=== PATIENT | male | born 1945 | race Caucasian/White ===

== ENCOUNTER 2016-09-07 08:15 | Inpatient (IN) | payer OTHER, BC ==
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
[2016-10-05] MEDS ORDERED: ceFAZolin 2 GM/DEXTROSE 100 ML IV ONE (06:07)
--- NOTE | 2016-10-05 06:13 | PDANEPAE ---
ANE History of Present Illness 71 year old male with severe low back and leg pain for L5/S1 TLIF. 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 Blind in L eye. Hypercholesterolemia. Chronic pain on morphine. Recent bronchitis 4 weeks ago, cleared 3 weeks ago with CXR and Abx. Remote PNA with lungs "weak" / scarring, empyema in past on L MAXIMINO, does not tolerate CPAP very well due to sinus issues. - Cardiovascular History Hx Hypertension: No Hx Arrhythmias: No Hx Chest Pain: No Hx Coronary Artery / Peripheral Vascular Disease: No Hx CHF / Valvular Disease: No Hx Palpitations: No - Pulmonary History Hx COPD: No Hx Asthma/Reactive Airway Disease: Yes Hx Recent Upper Respiratory Infection: Yes Hx Oxygen in Use at Home: No - Neurologic History Hx Cerebrovascular Accident: No Hx Seizures: No Hx Dementia: No - Endocrine History Hx Diabetes: No - Renal History Hx Renal Disorders: Yes - Liver History Hx Hepatic Disorders: No - Neurological & Psychiatric Hx Hx Neurological and Psychiatric Disorders: Yes - Cancer History Hx Cancer: No - Congenital Disorder History Hx Congenital Disorders: No - GI History Hx Gastrointestinal Disorders: No - Chronic Pain History Chronic Pain: Yes (low back/R leg) ANE Review of Systems - Exercise capacity METS (RN): 4 METS - Systems Constitutional: Reports: no symptoms EENMT: Reports: other (chronic sinus issues with drainage/congestion) Cardiac: Reports: no symptoms, other (no CAD per pt on recent angiography (for CP presentation, determine to be secondary to anxiety)) Respiratory: Reports: no symptoms, other ANE Patient History - Allergies Allergies/Adverse Reactions: levofloxacin Allergy (Verified 10/04/16 17:02) Other-Enter Comments metronidazole [From Flagyl] Allergy (Verified 10/04/16 17:02) Other-Enter Comments moxifloxacin Allergy (Verified 10/04/16 17:02) Other-Enter Comments nitroglycerin Allergy (Verified 10/04/16 17:02) Hypotension rofecoxib [From Vioxx] Allergy (Verified 10/04/16 17:02) Diarrhea - Home Medications Home Medications: RX: Albuterol [Proventil Inhaler HFA (*)] 2 puffs IH PRN PRN 07/04/14 [Last Taken 07/05/14] RX: Citalopram Hydrobromide [Citalopram HBr] 20 mg PO DAILY 07/04/14 [Last Taken 07/07/14 07:00] RX: Diazepam [Valium 5 MG (*)] 5 mg PO HS PRN 07/04/14 [Last Taken 07/05/14] RX: Rosuvastatin Calcium [Crestor] 10 mg PO HS 07/04/14 [Last Taken 07/06/14 21: 00] RX: morphINE IR [morphINE IR 15 mg (*)] 15 mg PO TID PRN 07/04/14 [Last Taken 05:00 15MG] RX: morphINE IR [morphINE IR 30 mg (*)] 30 mg PO TID PRN 07/04/14 [Last Taken 03:00] - NPO status NPO Since - Liquids (Date): 10/05/16 NPO Since - Liquids (Time): 06:30 (water with meds here) NPO Since - Solids (Date): 10/05/16 NPO Since - Solids (Time): 00:00 - Anes Hx Anes Hx: no prior problems - Smoking Hx Smoking Status: Never smoked Marijuana use: No - Alcohol Use Alcohol Use: Occasionally (1 beer/ day) - Family Anes Hx Family Anes Hx: neg - N/A ANE Labs/Vital Signs - Labs Result Diagrams: 10/05/16 06:35 - Vital Signs Height: 172.72 cm Weight: 72.575 kg ANE Physical Exam - Airway Neck exam: decreased ROM, spinal fusion Mallampati Score: Class 3 - Pulmonary Pulmonary: reduced air movement, other (decreased BS on L base) - Cardiovascular Cardiovascular: regular rate and rhythym, other (very distant) - ASA Status ASA Status: III ANE Anesthesia Plan Anesthesia Plan: general endotracheal anesthesia
[2016-10-05] MEDS ORDERED: LR 1,000 ML IV ONE (06:16)
[2016-10-05] MEDS ORDERED: LIDOCAINE 1% 2 ML INJ ID PRN (06:16)
[2016-10-05] MEDS ORDERED: LIDOCAINE 1% 2 ML INJ ONE (06:25)
--- NOTE | 2016-10-05 06:33 | PDHPUP ---
History & Physical Update H&P update statement: This history and physical update is based on an assessment of the patient which was completed after admission or registration (within 24 hours), but prior to the surgery/procedure. H&P update: H&P reviewed & patient examined, no change in patient's condition since H&P completed
[2016-10-05] MEDS ORDERED: BACITRACIN 50,000 UNITS/10 ML SYR IRR ONE (06:47)
[2016-10-05] MEDS ORDERED: BUPIVACAINE/EPI 0.25% 30 ML SDV ONE (06:47)
[2016-10-05] MEDS ORDERED: THROMBIN (BOVINE) 5,000 UNIT VIAL TP ONE (06:47)
[2016-10-05 06:52] LABS: % IMMATURE GRANULYOCYTES 0.2 % (0.0-1.1); ABSOLUTE IMMATURE GRANULOCYTES 0.01 10^3/uL (0.00-0.10); ADD DIFF? NO; ADD MORPH? NO; ADD SCAN? NO; ATYPICAL LYMPHOCYTE FLAG 10 (0-99); FRAGMENT RBC FLAG 0 (0-99); HEMATOCRIT 36.9 % (40.0-51.0); HEMOGLOBIN 12.9 g/dL (13.7-17.5); LEFT SHIFT FLG 0 (0-99); LIPEMIA HEMOLYSIS FLAG 90 (0-99); MEAN CELL HEMOGLOBIN 30.2 pg (27.9-34.1); MEAN CELL VOLUME 86.4 fL (81.5-99.8); MEAN PLATELET VOLUME 10.5 fL (8.7-11.7); PLATELET CLUMPS FLAG 20 (0-99); PLATELET COUNT 195 10^3/uL (150-400); RED BLOOD CELL COUNT 4.27 10^6/uL (4.40-6.38); RED CELL DISTRIBUTION WIDTH 13.5 % (11.5-15.2)
[2016-10-05] MEDS ORDERED: ALBUTEROL 3 ML DEYVIAL IH ONE (07:09)
[2016-10-05] MEDS ORDERED: MIDAZOLAM 2 MG/2 ML VIAL IVP ONE (07:10)
[2016-10-05] MEDS ORDERED: ALBUTEROL 3 ML DEYVIAL ONE (07:15)
[2016-10-05] MEDS ORDERED: DEXMEDETOMIDINE HCL 400 MCG in NS 100 ML IV SCH (07:30)
[2016-10-05] MEDS ORDERED: REMIFENTANIL HCL 1 MG VIAL ONE (07:30)
[2016-10-05] MEDS ORDERED: PROPOFOL/EMULSION 500 MG/50 ML BOTTLE IV ONE (07:30)
[2016-10-05] MEDS ORDERED: HYDROmorphONE/DILAUDID 2 MG/ML INJ ONE (07:30)
[2016-10-05] MEDS ORDERED: PROPOFOL 200 MG/20 ML VIAL ONE (07:35)
[2016-10-05] MEDS ORDERED: LIDOCAINE 2% 5 ML SDV ONE (07:36)
[2016-10-05] MEDS ORDERED: DEXAMETHASONE 4 MG/ML VIAL ONE (07:36)
[2016-10-05] MEDS ORDERED: ROCURONIUM 50 MG/5 ML VIAL ONE (07:36)
[2016-10-05] MEDS ORDERED: HYDROmorphONE/DILAUDID 6 MG/30 ML PCA IV PRN (08:06)
[2016-10-05] MEDS ORDERED: HYDROCODONE/APAP 5/325 TAB PO PRN (08:06)
[2016-10-05] MEDS ORDERED: LACTULOSE 20 GM/30 ML UDCUP PO PRN (08:06)
[2016-10-05] MEDS ORDERED: ONDANSETRON 4 MG/2 ML VIAL IVP PRN (08:06)
[2016-10-05] MEDS ORDERED: POLYETHYLENE GLYCOL 3350 17 GM PKT PO PRN (08:06)
[2016-10-05] MEDS ORDERED: ONDANSETRON DISINTEGRATING 4 MG TAB PO PRN (08:06)
[2016-10-05] MEDS ORDERED: NALOXONE HCL 0.4 MG/ML INJ IVP PRN ×2 (08:06→11:37)
[2016-10-05] MEDS ORDERED: BISACODYL 10 MG SUPP PR PRN (08:06)
[2016-10-05] MEDS ORDERED: MAGNESIUM HYDROXIDE 30 ML UDCUP PO PRN (08:06)
[2016-10-05] MEDS ORDERED: diphenhydrAMINE 25 MG CAP PO PRN (08:06)
[2016-10-05] MEDS ORDERED: NS 1,000 ML IV SCH (08:15)
[2016-10-05] MEDS ORDERED: DIAZEPAM 10 MG/2 ML SYR ONE (09:19)
[2016-10-05] MEDS ORDERED: ENALAPRILAT DIHYDRATE 1.25 MG/ML VIAL ONE (10:24)
[2016-10-05] MEDS ORDERED: ONDANSETRON 4 MG/2 ML VIAL ONE (10:28)
[2016-10-05] MEDS: LR 1,000 ML IV SCH ×2 (11:30→13:48)
[2016-10-05] MEDS ORDERED: fentaNYL 100 MCG/2 ML INJ IVP PRN (11:37)
[2016-10-05] MEDS ORDERED: LR 500 ML IV PRN (11:37)
[2016-10-05] MEDS ORDERED: PROMETHAZINE HCL 25 MG/ML INJ IVP PRN (11:37)
[2016-10-05] MEDS ORDERED: ALBUTEROL 3 ML DEYVIAL IH PRN (11:37)
[2016-10-05] MEDS ORDERED: HYDROmorphONE/DILAUDID 1 MG/ML SYR IVP PRN (11:37)
[2016-10-05] MEDS: FAMOTIDINE 20 MG TAB PO SCH ×2 (12:51→20:14)
[2016-10-05] MEDS: morphINE SR 15 MG TAB PO SCH ×2 (12:52→20:14)
[2016-10-05] MEDS: SENNOSIDES/DOCUSATE SODIUM TAB PO SCH ×2 (12:53→20:13)
--- NOTE | 2016-10-05 13:01 | SOAPPROG ---
SOAP Progress Note Assessment/Plan: Post Op Note: S: Awake and alert. NAD. Pt with expected lower back pain O: AFVSS/PERRLA/EOMI no droop CN 2-12 grossly intact +lt touch 5/5 BUE/BLE = KEITH in place CDI A/P: 71 yo male that is s/p TLIF L5/S1 -orders in place -call with any questions or concerns -pt seen by Dr Metz as well -brace when out of bed 10/05/16 12:59 Objective: Vital Signs Temp Pulse Resp BP Pulse Ox 36.1 C 64 12 112/60 94 10/05/16 12:35 10/05/16 12:35 10/05/16 12:40 10/05/16 12:40 10/05/16 12:40 Laboratory Results 10/05/16 06:35 10/04/16 10/05/16 10/06/16 05:59 05:59 05:59 Intake Total 1650 Output Total 350 Balance 1300 ICD10 Worksheet Patient Problems: Problems Problem Status Onset Lumbar radicular pain Acute Lumbar stenosis Acute Arthrodesis status Acute Cervical spinal stenosis Acute Neck pain Acute - ICD10 Problem Qualifiers (1) Lumbar stenosis (2) Lumbar radicular pain
[2016-10-05] MEDS: oxyCODONE IR 5 MG TAB PO PRN ×2 (13:46→18:45)
[2016-10-05] MEDS: METHOCARBAMOL 750 MG TAB PO PRN (13:49)
[2016-10-05] MEDS: ACETAMINOPHEN 500 MG TAB PO SCH ×2 (13:49→20:14)
[2016-10-05] MEDS: ceFAZolin 2 GM/DEXTROSE 100 ML IV SCH ×2 (13:55→20:13)
[2016-10-05] MEDS ORDERED: MORPHINE 30 MG PO PRN (15:22)
[2016-10-05] MEDS ORDERED: DIAZEPAM 5 MG TAB PO PRN (15:22)
[2016-10-05] MEDS ORDERED: ALBUTEROL 200 PUFFS/18 GM MDI IH PRN (15:30)
[2016-10-05] MEDS ORDERED: SODIUM CHLORIDE 5% 3.5 GM OPHT.OINT LEFTEYE SCH (16:00)
[2016-10-05] MEDS: ROSUVASTATIN CALCIUM 10 MG TAB PO SCH (20:14)
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
[2016-10-06] MEDS: SODIUM CHLORIDE 5% 30 ML OPHT.BTL LEFTEYE SCH ×4 (01:31→20:21)
[2016-10-06] MEDS: oxyCODONE IR 5 MG TAB PO PRN ×4 (03:49→20:18)
[2016-10-06] MEDS: ACETAMINOPHEN 500 MG TAB PO SCH ×3 (05:54→20:17)
[2016-10-06] MEDS: morphINE SR 15 MG TAB PO SCH ×2 (08:10→20:18)
[2016-10-06] MEDS: SENNOSIDES/DOCUSATE SODIUM TAB PO SCH ×2 (08:10→20:17)
[2016-10-06] MEDS: CITALOPRAM 20 MG TAB PO SCH (08:10)
[2016-10-06] MEDS: FAMOTIDINE 20 MG TAB PO SCH ×2 (08:10→20:17)
--- NOTE | 2016-10-06 08:59 | NEUSURGPN ---
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 No new events overnight. No de leon/neck/chest/abd or gu complaints. No f/c/n/v/d Objective: AFVSS/PERRLA/EOMI no droop CN 2-12 grossly intact +lt touch 5/5 BUE/BLE = KEITH in place CDI Neuro Check Frequency: per routine Urinary Catheter in Place: No - Physician Discussed Patient with DrBob: Isaías Patient Seen by : Isaías Neurosurgery Physical Exam - Vitals, I&O, Labs I and O 10/05/16 10/06/16 10/07/16 05:59 05:59 05:59 Intake Total 2400 Output Total 2014 Balance 385 -475 Weight 72.575 kg 72.575 kg Intake: Oral (ml) 400 IV Intake (ml) 1550 IV Infused (ml) 450 Ns 1,000 ml @ 75 mls/hr 150 IV CONT HANS Rx#: [id number] ceFAZolin 2 GM/DEXTROSE 200 100 ml @ 200 mls/hr IV ONCALL ONE Rx#:[id number] ceFAZolin 2 GM/DEXTROSE 100 100 ml @ 200 mls/hr IV Q8HRS [facility] Rx#:[id number] Output: Urine (ml) 1400 475 Toilet 1400 475 Estimated Blood Loss (ml) 300 KEITH Drain Output (ml) 315 Posterior Back Shay 315 [place] Other: Intake Quantity Yes Sufficient Number of Voids Toilet 1 Number of Stools Toilet 1 Bladder Scan Volume (ml) 670 Post Void Residual Scan Volume (ml) Toilet 200 Vital Signs Temp Pulse Resp BP Pulse Ox 36.6 C 48 L 14 102/50 L 100 10/06/16 07:56 10/06/16 07:56 10/06/16 07:56 10/06/16 07:56 10/06/16 07:56 Laboratory Results 10/05/16 06:35 ICD10 Worksheet Patient Problems: Problems Problem Status Onset Lumbar radicular pain Acute Lumbar stenosis Acute Arthrodesis status Acute Cervical spinal stenosis Acute Neck pain Acute - ICD10 Problem Qualifiers (1) Lumbar stenosis (2) Lumbar radicular pain
[2016-10-06] MEDS ORDERED: Herbals/Supplements -Info Only PO SCH (09:00)
[2016-10-06] MEDS: ROSUVASTATIN CALCIUM 10 MG TAB PO SCH (20:17)
[2016-10-06] MEDS: METHOCARBAMOL 750 MG TAB PO PRN (20:18)
[2016-10-06] MEDS ORDERED: TAMSULOSIN HCL 0.4 MG CAP PO ONE (23:56)
[2016-10-07] MEDS: ACETAMINOPHEN 500 MG TAB PO SCH ×3 (05:24→20:22)
[2016-10-07] MEDS: oxyCODONE IR 5 MG TAB PO PRN ×2 (05:24→11:43)
[2016-10-07] MEDS: METHOCARBAMOL 750 MG TAB PO PRN ×4 (05:24→20:23)
[2016-10-07] MEDS: FAMOTIDINE 20 MG TAB PO SCH ×2 (07:54→20:23)
[2016-10-07] MEDS: PREGABALIN 75 MG CAP PO PRN (08:04)
[2016-10-07] MEDS: SODIUM CHLORIDE 5% 30 ML OPHT.BTL LEFTEYE SCH ×3 (08:05→20:25)
--- NOTE | 2016-10-07 08:44 | NEUSURGPN ---
Date of Surgery: 10/05/16 Post Op Day: 2 Assessment/Plan: Assessment: 71 yo male that is s/p TLIF L5/S1 POD #2 Plan -s/p TLIF L5/S1: pt with expected lower back pain, legs feel "ok" -brace to wear when out of bed -PT/OT -Ordered Tamsulosin per patient request, patient takes this at home -call with any questions or concerns -pt seen by Dr Metz as well -pt understands and agrees Subjective: Patient has low back pain, feeling better today Objective: AFVSS/PERRLA/EOMI no droop CN 2-12 grossly intact +lt touch 5/5 BUE/BLE = CDI Neuro Check Frequency: per routine Urinary Catheter in Place: No - Physician Discussed Patient with : Isaías Patient Seen by : Isaías Neurosurgery Physical Exam - Vitals, I&O, Labs I and O 10/06/16 10/07/16 10/08/16 05:59 05:59 05:59 Intake Total 0 200 Output Total 2014 Balance 385 -625 Weight 72.575 kg Intake: Oral (ml) 400 200 IV Intake (ml) 1550 0 IV Infused (ml) 450 Ns 1,000 ml @ 75 mls/hr 150 IV CONT HANS Rx#: [id number] ceFAZolin 2 GM/DEXTROSE 200 100 ml @ 200 mls/hr IV ONCALL ONE Rx#:[id number] ceFAZolin 2 GM/DEXTROSE 100 100 ml @ 200 mls/hr IV Q8HRS [facility] Rx#:[id number] Output: Urine (ml) 1400 775 Toilet 1400 475 Urinal 300 Estimated Blood Loss (ml) 300 KEITH Drain Output (ml) 315 50 Posterior Back Shay 315 50 [place] Other: Intake Quantity Yes Sufficient Number of Voids Toilet 1 Urinal 1 Number of Stools Toilet 1 Bladder Scan Volume (ml) 670 Post Void Residual Scan Volume (ml) Toilet 200 Vital Signs Temp Pulse Resp BP Pulse Ox 36.6 C 78 16 128/76 H 95 10/07/16 04:00 10/07/16 04:00 10/07/16 04:00 10/07/16 04:00 10/07/16 04:00 Laboratory Results 10/05/16 06:35 ICD10 Worksheet Patient Problems: Problems Problem Status Onset Lumbar radicular pain Acute Lumbar stenosis Acute Arthrodesis status Acute Cervical spinal stenosis Acute Neck pain Acute
[2016-10-07] MEDS ORDERED: TAMSULOSIN HCL 0.4 MG CAP PO SCH ×2 (09:00→21:00)
[2016-10-07] MEDS: SENNOSIDES/DOCUSATE SODIUM TAB PO SCH ×2 (09:57→20:19)
[2016-10-07] MEDS: CITALOPRAM 20 MG TAB PO SCH (09:57)
[2016-10-07] MEDS: morphINE SR 15 MG TAB PO SCH ×2 (09:57→20:19)
[2016-10-07] MEDS: ROSUVASTATIN CALCIUM 10 MG TAB PO SCH (20:22)
[2016-10-07 23:43] VITALS: RESP 16
[2016-10-08] MEDS: METHOCARBAMOL 750 MG TAB PO PRN (05:37)
[2016-10-08] MEDS: ACETAMINOPHEN 500 MG TAB PO SCH (05:37)
[2016-10-08] MEDS: oxyCODONE IR 5 MG TAB PO PRN (05:37)
[2016-10-08 07:53] VITALS: BP 102/48; PULSE 80; TEMP 97.5; O2SAT 89
[2016-10-08] MEDS ORDERED: OMEGA-3 FATTY ACIDS 1,000 MG CAP PO SCH (08:00)
[2016-10-08] MEDS ORDERED: VITAMIN B COMPLEX 1 EA CAP/TAB PO SCH (08:00)
[2016-10-08] MEDS: ENOXAPARIN 40 MG/0.4 ML SYR SC SCH ×2 (09:18→09:29)
[2016-10-08] MEDS: CITALOPRAM 20 MG TAB PO SCH (09:19)
[2016-10-08] MEDS: FAMOTIDINE 20 MG TAB PO SCH (09:19)
[2016-10-08] MEDS: morphINE SR 15 MG TAB PO SCH (09:19)
[2016-10-08] MEDS: SENNOSIDES/DOCUSATE SODIUM TAB PO SCH (09:19)
[2016-10-08] MEDS: SODIUM CHLORIDE 5% 30 ML OPHT.BTL LEFTEYE SCH (09:19)
[2016-10-08] MEDS: PREGABALIN 75 MG CAP PO PRN (09:39)
--- NOTE | 2016-10-08 10:59 | NEUSURGPN ---
Assessment/Plan: Assessment: 71 yo male that is s/p TLIF L5/S1 POD #3 Plan -s/p TLIF L5/S1: pt with expected lower back pain, and improved leg pain -brace to wear when out of bed -PT/OT -Tamsulosin per patient request, patient takes this at home -call with any questions or concerns -dispo: home today if cleared by therapy teams. D/w Dr. Metz Subjective: pain well controlled, ready to go home Objective: VSS/PERRLA/EOMI no droop CN 2-12 grossly intact +lt touch 5/5 BUE/BLE = CDI Urinary Catheter in Place: No - Physician Discussed Patient with : Isaías Neurosurgery Physical Exam - Vitals, I&O, Labs I and O 10/07/16 10/08/16 10/09/16 05:59 05:59 05:59 Intake Total 200 750 Output Total 825 Balance -625 750 Intake: Oral (ml) 200 750 IV Intake (ml) 0 Output: Urine (ml) 775 Toilet 475 Urinal 300 KEITH Drain Output (ml) 50 Posterior Back Shay 50 [place] Other: Intake Quantity Yes Sufficient Number of Voids Toilet 2 Urinal 1 Vital Signs Temp Pulse Resp BP Pulse Ox 36.4 C 80 16 102/48 L 89 L 10/08/16 07:52 10/08/16 07:52 10/08/16 07:52 10/08/16 07:52 10/08/16 07:52 Laboratory Results 10/05/16 06:35 ICD10 Worksheet Patient Problems: Problems Problem Status Onset Lumbar radicular pain Acute Lumbar stenosis Acute Arthrodesis status Acute Cervical spinal stenosis Acute Neck pain Acute
== END 2016-10-08 15:15 | disposition home or self-care (01) | DRG 460 ==
LOC: F3N 10-05 05:31
PROVIDERS: ADMIT Neurological Surgery; ATTEND Neurological Surgery
DX: M51.17 Intervertebral disc disorders with radiculopathy, lumbosacral region (principal); G89.29 Other chronic pain; M54.2 Cervicalgia; F41.9 Anxiety disorder, unspecified; J45.909 Unspecified asthma, uncomplicated; Z98.1 Arthrodesis status; H54.40 Blindness, one eye, unspecified eye
CPT/HCPCS: 97161-GP; 97166-GO; 97530-GO; 97530-GP; 97535-GO; C1713; G8978-GP-CI; G8979-GP-CI; G8980-GP-CI; G8987-GO-CI; G8988-GO-CI; J0690; J1100; J1170; J1650; J2250; J2405; J2704